=== PATIENT | male | born 2000 | race Two or more races ===

== ENCOUNTER 2025-04-27 08:51 | Emergency (ER) | payer OTHER ==
[~2025-04-27] VITALS: Ht 165.1 cm; Wt 68.0 kg
[2025-04-27] MEDS ORDERED: 0.9 % SODIUM CHLORIDE 1,000 ML IV STA (09:11)
[2025-04-27 10:25] LABS: BASO % 0.8 % (0.1-1.2); EOS # 0.05 (0.04-0.54); HEMATOCRIT 43.1 % (40.1-51.0); HEMOGLOBIN 14.4 g/dL (13.7-17.5); LYMPH # 1.71 (1.18-3.74); LYMPH % 32.8 % (19.3-53.1); MEAN CORPUSCULAR HEMOGLOBIN 28.1 pg (25.6-32.2); MONO # 0.87 (0.24-0.82); NEUT # 2.51 (1.56-6.13); NEUT % 48.1 % (34.0-71.1); PLATELET COUNT 341 K/uL (163-369); RED BLOOD COUNT 5.13 M/uL (4.63-6.08); RED CELL DISTRIBUTION WIDTH 12.3 % (11.6-14.4)
[2025-04-27 10:50] LABS: CALCIUM 9.1 mg/dL (8.5-10.1); CREATININE SERUM 1.01 mg/dL (0.70-1.30); GFR 88.61; POTASSIUM 3.91 mEq/L (3.5-5.1)
[2025-04-27 11:04] LABS: URINE APPEARANCE Clear; URINE BILIRRUBIN Negative (NEGATIVE); URINE BLOOD Negative; URINE COLOR Dark Yellow; URINE GLUCOSE Negative (NEGATIVE); URINE LEUKOCYTE Negative; URINE NITRATE Negative; URINE PROTEIN 30 (NEGATIVE); URINE UROBILINOGEN 0.2 E.U./dl
[2025-04-27 11:05] LABS: URINE BACTERIA 6.1 uL (0.0-1933); URINE EPITHELIAL CELLS 13.7 uL (0.0-38.8); URINE WBC 16.9 uL (0.0-23.2)
[2025-04-27 11:12] LABS: MONO % 16.7 % (4.7-12.5)
[2025-04-27 11:32] LABS: URINE KETONE 80 (NEGATIVE)
[2025-04-27 11:33] LABS: URINE CAST 0.88 uL (0.0-1.40)
[2025-04-27] MEDS ORDERED: METRONIDAZOLE/SODIUM CHLORIDE 500 MG/100 ML PIGGYBACK IV ONE ×2 (12:00→12:23)
[2025-04-27] MEDS ORDERED: CIPROFLOXACIN IN 5 % DEXTROSE 400 MG/200 ML PIGGYBAG IV ONE ×2 (12:00→12:23)
== END 2025-04-27 15:29 | disposition home or self-care (01) ==
LOC: ER 08:51
PROVIDERS: Emergency Medicine
DX: K52.9 Noninfective gastroenteritis and colitis, unspecified (principal)